=== PATIENT | female | born 1950 | race Caucasian/White ===

== ENCOUNTER 2019-02-24 12:27 | Emergency (ER) | payer MEDICARE, OTHER ==
[~2019-02-24] VITALS: Ht 177.8 cm; Wt 87.2 kg
--- NOTE | 2019-02-24 15:27 | REP ---
Clinical: Cough. Fever . Comparison: None . Technique: PA and lateral. Findings: The mediastinum and cardiac silhouette are normal. The lung kline are clear and without acute consolidation, effusion, or pneumothorax. Chronic linear scarring in the left lung base. The skeletal structures are intact and normal. Impression: 1. No acute cardiopulmonary process. Electronically Signed by Johan Mukherjee MD 02/24/2019 03:19 P
[2019-02-24 15:49] LABS: INFLUENZA A AMPLIFICATION POSITIVE (NEGATIVE); INFLUENZA B AMPLIFICATION NEGATIVE (NEGATIVE)
[2019-02-24] MEDS ORDERED: OSEL75CA PO (16:28)
[2019-02-24] MEDS ORDERED: BENZ200C70 PO (16:29)
[2019-02-24] MEDS ORDERED: MUCI600T31 PO (16:29)
[2019-02-24] MEDS ORDERED: OSELTAMIVIR PHOSPHATE 75 MG CAP (TAMIFLU) PO ONE (16:30)
[2019-02-24 16:32] VITALS: BP 137/87
== END 2019-02-24 16:44 | disposition home or self-care (01) ==
LOC: M ED 12:27
DX: J09.X9 Influenza due to identified novel influenza A virus with other manifestations (principal); Z79.899 Other long term (current) drug therapy; Z88.1 Allergy status to other antibiotic agents; Z88.2 Allergy status to sulfonamides

== ENCOUNTER 2021-05-15 14:05 | Emergency (ER) | payer MEDICARE, OTHER ==
[~2021-05-15] VITALS: Ht 177.8 cm; Wt 91.4 kg
[~2021-05-15 14:05] MED LIST: BENZ200C70 PO; MUCI600T31 PO; OSEL75CA PO
[2021-05-15] MEDS ORDERED: diazePAM 5MG TABLET PO ONE (14:35)
[2021-05-15] MEDS ORDERED: fentaNYL 100 MCG/2 ML INJECTION (J3010) IV ONE (14:35)
[2021-05-15 15:11] LABS: BASO # 0.1 10^3/uL (0.0-0.2); BASO % 0.9 % (0.0-1.0); EOS # 0.1 10^3/uL (0.0-0.5); HEMATOCRIT 44.4 % (36.0-47.0); HEMOGLOBIN 14.7 g/dl (12.0-15.5); LYMPH # 1.1 10^3/uL (1.5-5.0); LYMPH % 10.1 % (24.0-44.0); MEAN CORPUSCULAR HEMOGLOBIN 31.8 pg (27.0-33.0); MEAN CORPUSCULAR HGB CONC 33.1 g/dl (32.0-36.5); MEAN CORPUSCULAR VOLUME 96.1 fl (80.0-96.0); MONO # 0.6 10^3/uL (0.0-0.8); MONO % 5.6 % (2.0-8.0); NEUTROPHILS % 81.9 % (36.0-66.0); PLATELET COUNT, AUTOMATED 302 10^3/uL (150-450); RED BLOOD COUNT 4.62 10^6/uL (4.00-5.40)
[2021-05-15 15:30] LABS: ALBUMIN 3.8 GM/DL (3.2-5.2); ALT/SGPT 25 U/L (12-78); BILIRUBIN,TOTAL 0.5 MG/DL (0.2-1.0); BLOOD UREA NITROGEN 17 MG/DL (7-18); CALCIUM LEVEL 8.4 MG/DL (8.8-10.2); CARBON DIOXIDE LEVEL 23 MEQ/L (21-32); CHLORIDE LEVEL 109 MEQ/L (98-107); CREATININE FOR GFR 0.79 MG/DL (0.55-1.30); GLOMERULAR FILTRATION RATE > 60.0 (>39); GLUCOSE, FASTING 99 MG/DL (70-100); POTASSIUM SERUM 4.3 MEQ/L (3.5-5.1); SODIUM LEVEL 140 MEQ/L (136-145); TOTAL PROTEIN 7.4 GM/DL (6.4-8.2)
[2021-05-15] MEDS ORDERED: ISOVUE-370 76% 100ML VIAL As Ordered ONE (15:33)
[2021-05-15] MEDS ORDERED: GABA-282 (16:10)
[2021-05-15] MEDS ORDERED: BIMA01SOL (16:10)
[2021-05-15] MEDS ORDERED: RHOP0.02 (16:10)
[2021-05-15] MEDS ORDERED: ZOCO10TA (16:10)
[2021-05-15] MEDS ORDERED: AMLO2.5T3 (16:10)
[2021-05-15] MEDS ORDERED: XIID5DRO (16:10)
[2021-05-15] MEDS ORDERED: MYRB50TA (16:10)
[2021-05-15] MEDS ORDERED: SOLI5TAB (16:10)
[2021-05-15] MEDS ORDERED: ESTR62CR (16:10)
--- NOTE | 2021-05-15 16:10 | REP ---
INDICATION: PAIN S/P FALL. COMPARISON: None. TECHNIQUE: Ap VIEW FINDINGS: No fracture/dislocation. Osteoporosis. Hip joints and sacroiliac joints normal.Soft tissues normal. IMPRESSION: No bony injury. <Electronically signed by Salbador Alves > 05/15/21 [id number]
--- NOTE | 2021-05-15 16:13 | REP ---
INDICATION: PAIN S/P FALL. COMPARISON: None. TECHNIQUE: AP view FINDINGS: Small area of atelectasis in LLL. Lungs otherwise clear. No pneumothorax. Heart not enlarged. No failure or pleural fluid. IMPRESSION: Small patch of atelectasis LEFT LOWER LOBE. <Electronically signed by Salbador Alves > 05/15/21 [id number]
[2021-05-15] MEDS ORDERED: PEPC10TA6 PO (16:14)
[2021-05-15] MEDS ORDERED: XIID5DRO OP (16:14)
[2021-05-15] MEDS ORDERED: FISH1000 PO (16:14)
[2021-05-15] MEDS ORDERED: OLOP2.5D3 OP (16:14)
[2021-05-15] MEDS ORDERED: eye vitamin (16:14)
[2021-05-15] MEDS ORDERED: PRIL20TA2 PO (16:14)
[2021-05-15] MEDS ORDERED: PROBCAP14 PO (16:14)
[2021-05-15] MEDS ORDERED: FLON1SPR NARES (16:14)
[2021-05-15] MEDS ORDERED: ALBU83IN NEB (16:14)
[2021-05-15] MEDS ORDERED: DULE100A INH (16:14)
[2021-05-15] MEDS ORDERED: LOTE0.5O OP (16:14)
--- NOTE | 2021-05-15 16:31 | REP ---
INDICATION: THORACIC PAIN WHEN IN [place]. COMPARISON: None. TECHNIQUE: Scans were obtained during contrast administration paired FINDINGS: Chest CT: Small area of atelectasis in the left lower lung and minimal area of atelectasis in the right lower lung. The lungs are otherwise clear. There is no pleural effusion or pneumothorax. Pulmonary arteries and aorta unremarkable paired Heart not enlarged. Thyroid not enlarged. Adrenal glands unremarkable. Abdominal and pelvic CT: One cm cyst right lobe of the liver. The liver is otherwise unremarkable. There is no mass or biliary tract dilatation. Small stone in the gallbladder. The gallbladder is not distended. The pancreas, spleen, aorta, adrenal glands and kidneys are unremarkable. There is a 3 x 2 cm cyst under the left hemidiaphragm in the left upper quadrant which is of uncertain etiology. The large and small bowel show normal size and mucosal pattern. Diverticuli are noted in the sigmoid colon. There is no evidence of diverticulitis. The urinary bladder is distended. The uterus and ovaries not present. No adenopathy demonstrated in the abdomen or pelvis. There is no evidence of inflammatory change in the abdomen or pelvis. IMPRESSION: Small areas of atelectasis in the lower lungs. Three right 2 cm cyst under the left hemidiaphragm. Diverticulosis without evidence of diverticulitis. Gallstone. <Electronically signed by Salbador Alves > 05/15/21 [id number]
[2021-05-15 16:41] LABS: APPEARANCE, URINE CLEAR (CLEAR); BACTERIA, URINE AUTO 1+ (NEGATIVE); BILIRUBIN, URINE AUTO NEGATIVE (NEGATIVE); BLOOD, URINE BLOOD NEGATIVE (NEGATIVE); COLOR, URINE STRAW (YELLOW); GLUCOSE, URINE (UA) AUTO NEGATIVE (NEGATIVE); KETONE, URINE AUTO NEGATIVE (NEGATIVE); LEUKOCYTE ESTERASE, URINE AUTO NEGATIVE (NEGATIVE); NITRITE, URINE AUTO NEGATIVE (NEGATIVE); PROTEIN, URINE AUTO NEGATIVE (NEGATIVE); RBC, URINE AUTO 0 /HPF (0-3); SPECIFIC GRAVITY URINE AUTO 1.012 (1.002-1.035); SQUAMOUS EPITHELIAL CELL UR AU 1 /HPF (0-6); UROBILINOGEN, URINE AUTO 0.2 mg/dL (0.0-2.0); WBC, URINE AUTO 1 /HPF (0-3)
--- NOTE | 2021-05-15 17:16 | REP ---
INDICATION: PAIN S/P FALL OFF DOCK. PREDOMINATELY T-SPINE. COMPARISON: None. TECHNIQUE: Unenhanced scans FINDINGS: Normal alignment. No fracture. Disc spaces well maintained. No foraminal encroachment. Neural canal shows normal dimensions. IMPRESSION: Negative CT cervical spine <Electronically signed by Salbador Alves > 05/15/21 [id number]
--- NOTE | 2021-05-15 17:18 | REP ---
INDICATION: PAIN S/P FALL OFF DOCK. PREDOMINATELY T-SPINE. COMPARISON: None. TECHNIQUE: Unenhanced scans FINDINGS: Multiple osteoporotic compression fractures which are old involving the mid thoracic vertebra. Anterior bridging osteophytes. Spondylosis with disc space narrowing. Minimal scoliosis convexity to the right. No evidence of recent fracture. Osteoporosis. IMPRESSION: Osteoporosis. Multiple midthoracic compression fractures with anterior bridging osteophytes and disc space narrowing. No recent fracture. <Electronically signed by Salbador Alves > 05/15/21 [id number]
--- NOTE | 2021-05-15 17:20 | REP ---
INDICATION: PAIN S/P FALL OFF DOCK. PREDOMINATELY T-SPINE. COMPARISON: None. TECHNIQUE: Scans were obtained without contrast administration. FINDINGS: Normal alignment. Osteoporosis. No fractures. Mild scoliosis convexity to the left. Disc spaces well maintained. Facet arthropathy L4-5 and L5-S1 levels. IMPRESSION: No fracture. <Electronically signed by Salbador Alves > 05/15/21 [id number]
--- NOTE | 2021-05-15 18:11 | REP ---
INDICATION: THORACIC PAIN WHEN IN [place]. COMPARISON: None. TECHNIQUE: Scans were obtained during contrast administration. FINDINGS: 1 cm cyst right lobe of the liver. No liver mass or biliary tract dilatation. Liver shows normal size. 5 mm gallstone. Gallbladder not distended. Pancreas and spleen unremarkable. 3 x 2 cm cyst under the left hemidiaphragm of uncertain etiology. Aorta not dilated. Adrenal glands not enlarged. Kidneys unremarkable. No mesenteric or retroperitoneal adenopathy. Large and small bowel show no mucosal thickening or inflammatory change. Appendix identified showing no abnormality. Diverticuli in the sigmoid colon no evidence of diverticulitis. No mass, adenopathy or inflammatory change in the abdomen or pelvis. Distended urinary bladder. IMPRESSION: 1 cm cyst right lobe of the liver. Gallstone. 3 x 2 cm cyst under the left hemidiaphragm. Diverticulosis. No evidence of diverticulitis. Distended urinary bladder. <Electronically signed by Salbador Alves > 05/15/21 [id number]
[2021-05-15] MEDS ORDERED: HYDR-3713 PO (18:30)
[2021-05-15] MEDS ORDERED: VALI5TAB PO (18:30)
[2021-05-15] MEDS ORDERED: NAPR-837 PO (18:30)
[2021-05-15 18:58] VITALS: BP 140/83
== END 2021-05-15 19:02 | disposition home or self-care (01) ==
LOC: EDBD 14:05 → M ED 14:05
DX: S23.3XXA Sprain of ligaments of thoracic spine, initial encounter (principal); Z04.89 Encounter for examination and observation for other specified reasons; Z87.311 Personal history of (healed) other pathological fracture; W19.XXXA Unspecified fall, initial encounter; Y92.099 Unspecified place in other non-institutional residence as the place of occurrence of the external cause; Y93.9 Activity, unspecified; Y99.9 Unspecified external cause status; E78.00 Pure hypercholesterolemia, unspecified; J45.909 Unspecified asthma, uncomplicated; H40.9 Unspecified glaucoma; M19.90 Unspecified osteoarthritis, unspecified site; M81.0 Age-related osteoporosis without current pathological fracture; K80.20 Calculus of gallbladder without cholecystitis without obstruction; K57.30 Diverticulosis of large intestine without perforation or abscess without bleeding; J98.6 Disorders of diaphragm; J98.11 Atelectasis; Q44.6 Cystic disease of liver; Z79.890 Hormone replacement therapy; Z79.899 Other long term (current) drug therapy; Z88.2 Allergy status to sulfonamides; Z88.1 Allergy status to other antibiotic agents; Z88.8 Allergy status to other drugs, medicaments and biological substances; Z88.5 Allergy status to narcotic agent
CPT/HCPCS: 71045; 71260; 72125; 72128; 72131; 72170; 74177; 80053; 81001; 85025; 96374; 99284; J3010; Q9967

== ENCOUNTER 2025-05-10 23:29 | Inpatient (IN) | payer MEDICARE, OTHER ==
[~2025-05-10] VITALS: Ht 177.8 cm; Wt 91.3 kg
[~2025-05-10 23:29] MED LIST changes: +ALBU2.5V10 NEB; +AMLO2.5T3; +BIMA01SOL OU; +ESTR62CR; +FISH1000 PO; +FLON1SPR NARES; +GABA-1172 PO; +HYDR-3713 PO; +LIFI1DRO4 OP; +LIFI1DRO4 OU; +LOTE0.5O OP; +MOME13HF8 INH; +MYRB50TA; +NAPR-837 PO; +OLOP2.5D3 OU; +PEPC10TA6 PO; +PRIL20TA2 PO; +PROBCAP14 PO; +RHOP0.02 OU; +SIMV-252 PO; +SOLI5TAB; +VALI5TAB PO; +eye vitamin
[2025-05-11] MEDS ORDERED: HYDROMORPHONE HCL 0.5 MG/0.5 ML SYRINGE IV PRN (01:05)
[2025-05-11] MEDS ORDERED: LEVALBUTEROL 1.25 MG 0.5ML CONCENTRATE NEB NEB PRN (01:20)
[2025-05-11] MEDS: ONDANSETRON 4MG 2ML VIAL IV ONE (01:22)
[2025-05-11] MEDS: HYDROMORPHONE HCL 0.5 MG/0.5 ML SYRINGE IV PRN (01:23)
[2025-05-11] MEDS: traMADol 50 MG TAB PO ONE (01:24)
[2025-05-11 01:37] LABS: BASO # 0.1 10^3/uL (0.0-0.2); BASO % 0.5 % (0.0-1.0); EOS # 0.0 10^3/uL (0.0-0.5); EOS % 0.1 % (0.0-3.0); LYMPH # 0.9 10^3/uL (1.5-5.0); LYMPH % 6.3 % (24.0-44.0); MONO # 0.6 10^3/uL (0.0-0.8); MONO % 4.2 % (2.0-8.0); NEUTROPHILS # 13.1 10^3/uL (1.5-8.5); NEUTROPHILS % 88.5 % (36.0-66.0); PLATELET COUNT, AUTOMATED 266 10^3/uL (150-450)
[2025-05-11 01:51] LABS: INR 1.02
[2025-05-11] MEDS: LEVALBUTEROL 1.25 MG 0.5ML CONCENTRATE NEB NEB SCH (02:24)
[2025-05-11 02:25] VITALS: BP 131/87; TEMP 97.7; O2SAT 97
[2025-05-11 02:25] LABS: CALCIUM LEVEL 9.6 MG/DL (8.3-10.6); CARBON DIOXIDE LEVEL 23.0 MMOL/L (20-31); CHLORIDE LEVEL 105.0 MMOL/L (98-107); CREATININE FOR GFR 1.0 MG/DL (0.55-1.30); GLOMERULAR FILTRATION RATE 58.8 (>39); MAGNESIUM LEVEL 2.2 MG/DL (1.8-2.4); POTASSIUM SERUM 4.2 MMOL/L (3.5-5.1); SODIUM LEVEL 142.0 MMOL/L (136-145)
[2025-05-11] MEDS: KCL 20MEQ IN D5/NS 1000ML 1,000 ML IV SCH (02:59)
[2025-05-11 03:00] VITALS: BP 131/87; TEMP 97.7; O2SAT 97
[2025-05-11] MEDS ORDERED: FAMO20TA PO (04:36)
[2025-05-11] MEDS ORDERED: AMLO1TAB24 PO (04:36)
[2025-05-11] MEDS ORDERED: VITA200028 PO ×2 (04:42)
[2025-05-11] MEDS ORDERED: HOME MED LIST COMPLETE! XX SCH (04:45)
[2025-05-11 06:06] LABS: PLATELET COUNT, AUTOMATED 229 10^3/uL (150-450)
[2025-05-11 06:19] LABS: INR 1.04
[2025-05-11] MEDS: SYMBICORT 160/4.5MCG INHALER 6GM INH SCH (08:00)
[2025-05-11 08:04] LABS: CALCIUM LEVEL 8.7 MG/DL (8.3-10.6); CARBON DIOXIDE LEVEL 25.0 MMOL/L (20-31); CHLORIDE LEVEL 107.0 MMOL/L (98-107); CREATININE FOR GFR 0.83 MG/DL (0.55-1.30); GLOMERULAR FILTRATION RATE 73.5 (>39); POTASSIUM SERUM 4.3 MMOL/L (3.5-5.1); SODIUM LEVEL 144.0 MMOL/L (136-145)
[2025-05-11] MEDS: HEPARIN SOD 5000 UNITS/ML 1 ML VIAL/SYRINGE SC SCH (09:03)
[2025-05-11] MEDS: FAMOTIDINE 20 MG TAB PO SCH (09:04)
[2025-05-11] MEDS: ACETAMINOPHEN 500 MG TAB PO SCH (09:04)
[2025-05-11] MEDS: KETOROLAC 30 MG/ML 1 ML VIAL IV SCH (09:04)
[2025-05-11] MEDS: GABAPENTIN 300 MG CAP PO SCH (09:05)
[2025-05-11 12:00] VITALS: BP 116/59; TEMP 97.3; O2SAT 96
[2025-05-11] MEDS: LIDOCAINE 5% PATCH TD SCH (13:49)
[2025-05-11 19:55] VITALS: BP 144/67; TEMP 97.3; O2SAT 97
[2025-05-11] MEDS: SIMVASTATIN 10 MG TAB PO SCH (20:35)
[2025-05-11] MEDS: FLUTICASONE PROPIONATE 0.05% NASAL SPRAY 16 GM NARES SCH (20:35)
[2025-05-11] MEDS: OMEPRAZOLE 20MG CAP PO SCH (20:38)
[2025-05-11] MEDS: LATANOPROST 0.005% OPHTH SOLN 2.5 ML OU SCH (20:38)
[2025-05-12] VITALS (18 sets, daily range): BP systolic 135–176; BP diastolic 65–93; TEMP 97–98.2; O2SAT 92–100
[2025-05-12 06:06] LABS: BASO # 0.1 10^3/uL (0.0-0.2); BASO % 0.8 % (0.0-1.0); EOS # 0.2 10^3/uL (0.0-0.5); EOS % 3.5 % (0.0-3.0); LYMPH # 1.4 10^3/uL (1.5-5.0); LYMPH % 22.1 % (24.0-44.0); MONO # 0.8 10^3/uL (0.0-0.8); MONO % 12.2 % (2.0-8.0); NEUTROPHILS # 3.9 10^3/uL (1.5-8.5); NEUTROPHILS % 61.1 % (36.0-66.0); PLATELET COUNT, AUTOMATED 199 10^3/uL (150-450)
[2025-05-12] MEDS: OLOPATADINE 0.1% OPHTH SOL 5ML OU SCH (09:00)
[2025-05-12] MEDS: amLODIPine 5 MG TAB PO SCH (09:28)
[2025-05-12] MEDS ORDERED: ACET-683 PO (12:06)
[2025-05-12] MEDS ORDERED: IBUP-1022 PO (12:06)
[2025-05-12] MEDS ORDERED: LIDO5TD TD (12:06)
[2025-05-12] MEDS ORDERED: TRAM50TA2 PO (12:06)
[2025-05-12] MEDS ORDERED: BISACODYL 10 MG SUPP PR PRN (13:50)
[2025-05-12] MEDS ORDERED: PILL CUTTER 1 EACH XX PRN (14:40)
[2025-05-12] MEDS ORDERED: traMADol 50 MG TAB PO SCH (16:00)
[2025-05-12] MEDS ORDERED: IBUPROFEN 400 MG TAB PO SCH (16:00)
[2025-05-12] MEDS ORDERED: SENNOSIDES/DOCUSATE SODIUM 8.6 MG/50MG TAB PO SCH (21:00)
[2025-05-13] MEDS ORDERED: OMEP40CA5 PO (14:43)
== END 2025-05-12 16:10 | disposition home or self-care (01) | DRG 200 ==
LOC: M ED 23:29 → M ED INP 05-11 01:16 → M PCU 05-11 02:18
PROVIDERS: ADMIT Internal Medicine; ATTEND Internal Medicine
DX: S27.0XXA Traumatic pneumothorax, initial encounter (principal); S22.41XA Multiple fractures of ribs, right side, initial encounter for closed fracture; W01.190A Fall on same level from slipping, tripping and stumbling with subsequent striking against furniture, initial encounter; Y92.009 Unspecified place in unspecified non-institutional (private) residence as the place of occurrence of the external cause; E78.5 Hyperlipidemia, unspecified; J45.909 Unspecified asthma, uncomplicated; K21.9 Gastro-esophageal reflux disease without esophagitis; K59.00 Constipation, unspecified; H40.9 Unspecified glaucoma; Z90.79 Acquired absence of other genital organ(s); Z79.899 Other long term (current) drug therapy; Z88.0 Allergy status to penicillin; Z88.1 Allergy status to other antibiotic agents; Z88.2 Allergy status to sulfonamides; Z88.5 Allergy status to narcotic agent; Z88.6 Allergy status to analgesic agent

== ENCOUNTER 2025-05-13 04:22 | Inpatient (IN) | payer MEDICARE ==
[~2025-05-13] VITALS: Ht 177.8 cm; Wt 91.7 kg
[~2025-05-13 04:22] MED LIST changes: +ACET-683 PO; +AMLO1TAB24 PO; +FAMO20TA PO; +IBUP600T42 PO; +LIDO5TD TD; +TRAM50TA2 PO; +VITA200028 PO
[2025-05-13] MEDS: amLODIPine 5 MG TAB PO SCH (09:00)
[2025-05-13 09:11] LABS: BASO # 0.0 10^3/uL (0.0-0.2); BASO % 0.5 % (0.0-1.0); EOS # 0.0 10^3/uL (0.0-0.5); EOS % 0.1 % (0.0-3.0); LYMPH # 1.0 10^3/uL (1.5-5.0); LYMPH % 11.5 % (24.0-44.0); MONO # 0.6 10^3/uL (0.0-0.8); MONO % 6.2 % (2.0-8.0); NEUTROPHILS # 7.1 10^3/uL (1.5-8.5); NEUTROPHILS % 81.0 % (36.0-66.0); PLATELET COUNT, AUTOMATED 265 10^3/uL (150-450)
[2025-05-13 09:27] LABS: CK-MB VALUE MASS 2.5 NG/ML (<3.6)
[2025-05-13 09:41] LABS: ALT/SGPT 16 U/L (7.0-40); AST/SGOT 20 U/L (<34); CALCIUM LEVEL 9.9 MG/DL (8.3-10.6); CARBON DIOXIDE LEVEL 25 MMOL/L (20-31); CHLORIDE LEVEL 104 MMOL/L (98-107); CPK CREATINE PHOSPHOKINASE 170 U/L (34-145); CREATININE FOR GFR 0.62 MG/DL (0.55-1.30); GLOMERULAR FILTRATION RATE > 90.0 (>39); MB/CK RELATIVE INDEX 1.47 (< OR =4); POTASSIUM SERUM 4.0 MMOL/L (3.5-5.1); SODIUM LEVEL 142 MMOL/L (136-145)
[2025-05-13] MEDS: NS 500 ML IV ONE (09:50)
[2025-05-13] MEDS: ONDANSETRON 4MG 2ML VIAL IV ONE ×2 (09:50→14:18)
[2025-05-13] MEDS: HYDROMORPHONE HCL 0.5 MG/0.5 ML SYRINGE IV PRN (10:27)
[2025-05-13] MEDS ORDERED: ISOVUE-370 76% 100 ML VIAL As Ordered ONE (10:54)
[2025-05-13] MEDS ORDERED: OMEP40CA5 PO (14:43)
[2025-05-13] MEDS ORDERED: HOME MED LIST COMPLETE! XX SCH (14:45)
[2025-05-13] MEDS: ACETAMINOPHEN 500 MG TAB PO SCH (16:00)
[2025-05-13] MEDS: IBUPROFEN 600 MG TAB PO SCH (16:00)
[2025-05-13] MEDS: PANTOPRAZOLE 40MG VIAL IV ONE (17:14)
[2025-05-13 17:29] VITALS: BP 159/85; TEMP 97.2; O2SAT 97
[2025-05-13] MEDS: ACETAMINOPHEN *IV* 1,000 MG in IV 1 EA IV ONE (18:19)
[2025-05-13] MEDS: LEVALBUTEROL 1.25 MG 0.5ML CONCENTRATE NEB INH SCH (19:09)
[2025-05-13] MEDS: SYMBICORT 160/4.5MCG INHALER 6GM INH SCH (19:09)
[2025-05-13 20:09] VITALS: BP 147/72; TEMP 99.4; O2SAT 94
[2025-05-13] MEDS: SENNOSIDES/DOCUSATE SODIUM 8.6 MG/50MG TAB PO SCH (21:00)
[2025-05-13] MEDS: FLUTICASONE PROPIONATE 0.05% NASAL SPRAY 16 GM NARES SCH (21:00)
[2025-05-13] MEDS: LIDOCAINE 5% PATCH TD SCH (22:39)
[2025-05-13] MEDS: GABAPENTIN 300 MG CAP PO SCH (22:44)
[2025-05-13] MEDS: FAMOTIDINE 20 MG TAB PO SCH (22:44)
[2025-05-13] MEDS: SIMVASTATIN 10 MG TAB PO SCH (22:44)
[2025-05-13] MEDS: LATANOPROST 0.005% OPHTH SOLN 2.5 ML OU SCH (22:47)
[2025-05-13] MEDS: ONDANSETRON 4MG ORAL DISINTEGRATING TAB PO PRN (23:52)
[2025-05-14] VITALS (7 sets, daily range): BP systolic 122–164; BP diastolic 59–79; TEMP 98.3–99.5; O2SAT 96–100
[2025-05-14] MEDS: KETOROLAC 30 MG/ML 1 ML VIAL IV PRN (04:47)
[2025-05-14 07:15] LABS: PLATELET COUNT, AUTOMATED 251 10^3/uL (150-450)
[2025-05-14 07:41] LABS: ALT/SGPT 18 U/L (7.0-40); AST/SGOT 22 U/L (<34); CALCIUM LEVEL 9.0 MG/DL (8.3-10.6); CARBON DIOXIDE LEVEL 25 MMOL/L (20-31); CHLORIDE LEVEL 102 MMOL/L (98-107); CREATININE FOR GFR 0.57 MG/DL (0.55-1.30); GLOMERULAR FILTRATION RATE > 90.0 (>39); POTASSIUM SERUM 3.3 MMOL/L (3.5-5.1); SODIUM LEVEL 142 MMOL/L (136-145)
[2025-05-14] MEDS ORDERED: MIRALAX *UNIT DOSE* 17 GM PACKET PO PRN (08:50)
[2025-05-14] MEDS ORDERED: PANTOPRAZOLE 20 MG TAB PO SCH (09:00)
[2025-05-14] MEDS: MORPHINE 4 MG/ML 1 ML VIAL IV PRN (09:59)
[2025-05-14] MEDS: ONDANSETRON 4MG 2ML VIAL IV PRN (10:00)
[2025-05-14] MEDS ORDERED: ONDANSETRON 4MG 2ML VIAL IV SCH (10:00)
[2025-05-14] MEDS: SENNOSIDES/DOCUSATE SODIUM 8.6 MG/50MG TAB PO SCH (10:51)
[2025-05-14] MEDS: PANTOPRAZOLE 40MG VIAL IV SCH (10:52)
[2025-05-14] MEDS: BISACODYL 10 MG SUPP PR ONE (10:52)
[2025-05-14] MEDS: KCL 10MEQ/100ML SWI (KRUN) 10 MEQ in IV 1 EA IV SCH (10:57)
[2025-05-14] MEDS ORDERED: BISACODYL 10 MG SUPP PR PRN ×2 (13:15→13:25)
[2025-05-14] MEDS ORDERED: NALOXONE INJ 0.4 MG/1 ML VIAL IV PRN (13:20)
[2025-05-14] MEDS ORDERED: ONDANSETRON 4MG 2ML VIAL IV PRN (13:20)
[2025-05-14] MEDS ORDERED: EPIDURAL/PCA KEYS XX PRN (13:20)
[2025-05-14] MEDS ORDERED: NALBUPHINE HCL 10 MG/ML 1 ML AMP IV PRN (13:20)
[2025-05-14] MEDS: ACETAMINOPHEN *IV* 1,000 MG in IV 1 EA IV SCH (14:14)
[2025-05-14] MEDS: MIDAZOLAM INJ 2 MG/2 ML VIAL IV ONE (15:03)
[2025-05-14] MEDS: CALCIUM GLUCONATE 1,000 MG in DEXTROSE 5% (D5W) MINI-BAG PLU 100 ML IV ONE (16:25)
[2025-05-14] MEDS: KETOROLAC 30 MG/ML 1 ML VIAL IV SCH (17:00)
[2025-05-14] MEDS: OLOPATADINE 0.1% OPHTH SOL 5ML OU SCH (17:47)
[2025-05-14] MEDS: fentaNYL CITRATE 500 MCG, BUPIVACAINE HCL 0.5% 31.25 ML in NS 208.75 ML EPIDURAL SCH (19:12)
[2025-05-14] MEDS: diphenhydrAMINE 50 MG/ML VIAL IV PRN (20:10)
[2025-05-14] MEDS: DOCUSATE SODIUM 100 MG CAPSULE PO SCH (20:22)
[2025-05-15] VITALS (9 sets, daily range): BP systolic 88–132; BP diastolic 50–70; TEMP 97.4–98.3; O2SAT 93–97
[2025-05-15 05:48] LABS: BASO # 0.1 10^3/uL (0.0-0.2); BASO % 0.6 % (0.0-1.0); EOS # 0.0 10^3/uL (0.0-0.5); EOS % 0.5 % (0.0-3.0); LYMPH # 1.9 10^3/uL (1.5-5.0); LYMPH % 24.0 % (24.0-44.0); MONO # 0.9 10^3/uL (0.0-0.8); MONO % 11.5 % (2.0-8.0); NEUTROPHILS # 4.9 10^3/uL (1.5-8.5); NEUTROPHILS % 63.1 % (36.0-66.0); PLATELET COUNT, AUTOMATED 234 10^3/uL (150-450)
[2025-05-15 06:08] LABS: CALCIUM LEVEL 8.0 MG/DL (8.3-10.6); CARBON DIOXIDE LEVEL 28.0 MMOL/L (20-31); CHLORIDE LEVEL 104.0 MMOL/L (98-107); CREATININE FOR GFR 0.8 MG/DL (0.55-1.30); GLOMERULAR FILTRATION RATE 76.8 (>39); POTASSIUM SERUM 3.6 MMOL/L (3.5-5.1); SODIUM LEVEL 141.0 MMOL/L (136-145)
[2025-05-15] MEDS: MOM 30 ML SUSPENSION UDC PO SCH (08:39)
[2025-05-15] MEDS: MIRALAX *UNIT DOSE* 17 GM PACKET PO SCH (08:39)
[2025-05-15] MEDS: NS 500 ML IV ONE (16:25)
[2025-05-16 03:31] VITALS: BP 111/57; TEMP 97.4; O2SAT 93
[2025-05-16 04:44] LABS: BASO # 0.0 10^3/uL (0.0-0.2); BASO % 0.5 % (0.0-1.0); EOS # 0.2 10^3/uL (0.0-0.5); EOS % 2.7 % (0.0-3.0); LYMPH # 1.5 10^3/uL (1.5-5.0); LYMPH % 20.6 % (24.0-44.0); MONO # 0.8 10^3/uL (0.0-0.8); MONO % 10.3 % (2.0-8.0); NEUTROPHILS # 4.8 10^3/uL (1.5-8.5); NEUTROPHILS % 65.5 % (36.0-66.0); PLATELET COUNT, AUTOMATED 190 10^3/uL (150-450)
[2025-05-16 05:09] LABS: CALCIUM LEVEL 7.9 MG/DL (8.3-10.6); CARBON DIOXIDE LEVEL 28.0 MMOL/L (20-31); CHLORIDE LEVEL 104.0 MMOL/L (98-107); CREATININE FOR GFR 0.88 MG/DL (0.55-1.30); GLOMERULAR FILTRATION RATE 68.5 (>39); POTASSIUM SERUM 3.6 MMOL/L (3.5-5.1); SODIUM LEVEL 142.0 MMOL/L (136-145)
[2025-05-16 07:48] VITALS: BP 113/62; TEMP 97.4; O2SAT 95
[2025-05-16] MEDS ORDERED: SENNOSIDES/DOCUSATE SODIUM 8.6 MG/50MG TAB PO PRN (09:00)
[2025-05-16 12:00] VITALS: BP 108/58; TEMP 98.1; O2SAT 97
[2025-05-16] MEDS: ACETAMINOPHEN 500 MG TAB PO SCH (14:00)
[2025-05-16 16:00] VITALS: BP 118/64; TEMP 98.6; O2SAT 94
[2025-05-16 19:29] VITALS: BP 139/67; TEMP 98.3; O2SAT 95
[2025-05-17] VITALS (7 sets, daily range): BP systolic 124–143; BP diastolic 63–78; TEMP 97.3–97.9; O2SAT 94–97
[2025-05-17 06:00] LABS: BASO # 0.1 10^3/uL (0.0-0.2); BASO % 0.8 % (0.0-1.0); EOS # 0.4 10^3/uL (0.0-0.5); EOS % 7.2 % (0.0-3.0); LYMPH # 1.7 10^3/uL (1.5-5.0); LYMPH % 27.5 % (24.0-44.0); MONO # 0.7 10^3/uL (0.0-0.8); MONO % 10.8 % (2.0-8.0); NEUTROPHILS # 3.3 10^3/uL (1.5-8.5); NEUTROPHILS % 53.4 % (36.0-66.0); PLATELET COUNT, AUTOMATED 202 10^3/uL (150-450)
[2025-05-17 06:22] LABS: CALCIUM LEVEL 7.8 MG/DL (8.3-10.6); CARBON DIOXIDE LEVEL 27 MMOL/L (20-31); CHLORIDE LEVEL 107 MMOL/L (98-107); CREATININE FOR GFR 0.68 MG/DL (0.55-1.30); GLOMERULAR FILTRATION RATE > 90.0 (>39); POTASSIUM SERUM 3.7 MMOL/L (3.5-5.1); SODIUM LEVEL 144 MMOL/L (136-145)
[2025-05-17] MEDS: POTASSIUM CHLORIDE 10MEQ SR TABLET PO ONE (09:52)
[2025-05-17] MEDS: FUROSEMIDE 40 MG/4 ML VIAL IV ONE (09:52)
[2025-05-18 03:16] VITALS: BP 129/68; TEMP 97; O2SAT 96
[2025-05-18 05:29] LABS: BASO # 0.1 10^3/uL (0.0-0.2); BASO % 1.0 % (0.0-1.0); EOS # 0.5 10^3/uL (0.0-0.5); EOS % 8.5 % (0.0-3.0); LYMPH # 1.7 10^3/uL (1.5-5.0); LYMPH % 28.3 % (24.0-44.0); MONO # 0.6 10^3/uL (0.0-0.8); MONO % 9.2 % (2.0-8.0); NEUTROPHILS # 3.2 10^3/uL (1.5-8.5); NEUTROPHILS % 52.7 % (36.0-66.0); PLATELET COUNT, AUTOMATED 215 10^3/uL (150-450)
[2025-05-18 05:58] LABS: CALCIUM LEVEL 7.7 MG/DL (8.3-10.6); CARBON DIOXIDE LEVEL 30.0 MMOL/L (20-31); CHLORIDE LEVEL 105.0 MMOL/L (98-107); CREATININE FOR GFR 0.72 MG/DL (0.55-1.30); GLOMERULAR FILTRATION RATE 87.1 (>39); POTASSIUM SERUM 4.0 MMOL/L (3.5-5.1); SODIUM LEVEL 145.0 MMOL/L (136-145)
[2025-05-18 08:10] VITALS: BP 159/75; TEMP 98.2; O2SAT 99
[2025-05-18 11:52] VITALS: BP 122/83; TEMP 97.6; O2SAT 97
[2025-05-18] MEDS: FUROSEMIDE 40 MG/4 ML VIAL IV ONE (12:33)
[2025-05-18 15:53] VITALS: BP 124/56; TEMP 98.1; O2SAT 96
[2025-05-18 19:05] VITALS: BP 126/77; TEMP 97.9; O2SAT 97
[2025-05-18 23:05] VITALS: BP 118/58; TEMP 97.5; O2SAT 96
[2025-05-19 03:26] VITALS: BP 131/62; TEMP 97.7; O2SAT 97
[2025-05-19 05:45] LABS: BASO # 0.1 10^3/uL (0.0-0.2); BASO % 1.3 % (0.0-1.0); EOS # 0.5 10^3/uL (0.0-0.5); EOS % 8.5 % (0.0-3.0); LYMPH # 1.7 10^3/uL (1.5-5.0); LYMPH % 27.3 % (24.0-44.0); MONO # 0.6 10^3/uL (0.0-0.8); MONO % 9.3 % (2.0-8.0); NEUTROPHILS # 3.3 10^3/uL (1.5-8.5); NEUTROPHILS % 53.3 % (36.0-66.0); PLATELET COUNT, AUTOMATED 224 10^3/uL (150-450)
[2025-05-19 06:12] LABS: CALCIUM LEVEL 7.6 MG/DL (8.3-10.6); CARBON DIOXIDE LEVEL 29.0 MMOL/L (20-31); CHLORIDE LEVEL 105.0 MMOL/L (98-107); CREATININE FOR GFR 0.75 MG/DL (0.55-1.30); GLOMERULAR FILTRATION RATE 83.0 (>39); POTASSIUM SERUM 3.8 MMOL/L (3.5-5.1); SODIUM LEVEL 143.0 MMOL/L (136-145)
[2025-05-19 07:50] VITALS: BP 166/76; TEMP 96.7; O2SAT 96
[2025-05-19 12:31] VITALS: BP 129/75; TEMP 98.1; O2SAT 97
[2025-05-19 15:55] VITALS: BP 137/65; TEMP 97.4; O2SAT 95
[2025-05-19] MEDS: traMADol 50 MG TAB PO PRN (19:04)
[2025-05-19 19:19] VITALS: BP 165/81; TEMP 97.4; O2SAT 95
[2025-05-19 23:15] VITALS: BP 184/88; TEMP 97; O2SAT 96
[2025-05-19] MEDS: amLODIPine 5 MG TAB PO ONE (23:47)
[2025-05-20] MEDS: ACETAMINOPHEN *IV* 500 MG in IV 1 EA IV ONE (02:09)
[2025-05-20 03:17] VITALS: BP 161/78; TEMP 97.3; O2SAT 97
[2025-05-20 05:44] LABS: BASO # 0.1 10^3/uL (0.0-0.2); BASO % 1.2 % (0.0-1.0); EOS # 0.5 10^3/uL (0.0-0.5); EOS % 6.9 % (0.0-3.0); LYMPH # 1.6 10^3/uL (1.5-5.0); LYMPH % 23.4 % (24.0-44.0); MONO # 0.6 10^3/uL (0.0-0.8); MONO % 9.5 % (2.0-8.0); NEUTROPHILS # 3.9 10^3/uL (1.5-8.5); NEUTROPHILS % 58.5 % (36.0-66.0); PLATELET COUNT, AUTOMATED 252 10^3/uL (150-450)
[2025-05-20 06:17] LABS: CALCIUM LEVEL 8.8 MG/DL (8.3-10.6); CARBON DIOXIDE LEVEL 27 MMOL/L (20-31); CHLORIDE LEVEL 105 MMOL/L (98-107); CREATININE FOR GFR 0.66 MG/DL (0.55-1.30); GLOMERULAR FILTRATION RATE > 90.0 (>39); POTASSIUM SERUM 4.2 MMOL/L (3.5-5.1); SODIUM LEVEL 143 MMOL/L (136-145)
[2025-05-20 07:25] VITALS: BP 147/81; TEMP 97.4; O2SAT 97
[2025-05-20] MEDS: ENOXAPARIN 40 MG/0.4 ML SYRINGE (J1650 PER 10MG) SC SCH (08:39)
[2025-05-20] MEDS: KETOROLAC 30 MG/ML 1 ML VIAL IV SCH (09:28)
[2025-05-20 11:25] VITALS: BP 162/76; TEMP 98.3; O2SAT 97
[2025-05-20] MEDS: amLODIPine 5 MG TAB PO SCH (13:10)
[2025-05-20 15:49] VITALS: BP 127/70; TEMP 98.6; O2SAT 96
[2025-05-20 20:00] VITALS: BP 169/81; TEMP 98.2; O2SAT 98
[2025-05-20 23:32] VITALS: BP 148/84; TEMP 97.3; O2SAT 97
[2025-05-21] VITALS (7 sets, daily range): BP systolic 139–168; BP diastolic 63–90; TEMP 97.3–98.5; O2SAT 93–98
[2025-05-21 05:18] LABS: PLATELET COUNT, AUTOMATED 280 10^3/uL (150-450)
[2025-05-21 05:43] LABS: CALCIUM LEVEL 9.4 MG/DL (8.3-10.6); CARBON DIOXIDE LEVEL 27 MMOL/L (20-31); CHLORIDE LEVEL 105 MMOL/L (98-107); CREATININE FOR GFR 0.65 MG/DL (0.55-1.30); GLOMERULAR FILTRATION RATE > 90.0 (>39); POTASSIUM SERUM 4.5 MMOL/L (3.5-5.1); SODIUM LEVEL 143 MMOL/L (136-145)
[2025-05-21] MEDS: traMADol 50 MG TAB PO PRN (13:01)
[2025-05-22 00:09] VITALS: BP 135/63; TEMP 97.5; O2SAT 96
[2025-05-22 03:44] VITALS: BP 137/66; TEMP 97.2; O2SAT 96
[2025-05-22 05:57] LABS: PLATELET COUNT, AUTOMATED 301 10^3/uL (150-450)
[2025-05-22 06:27] LABS: CALCIUM LEVEL 9.2 MG/DL (8.3-10.6); CARBON DIOXIDE LEVEL 27.0 MMOL/L (20-31); CHLORIDE LEVEL 104.0 MMOL/L (98-107); CREATININE FOR GFR 0.72 MG/DL (0.55-1.30); GLOMERULAR FILTRATION RATE 87.1 (>39); POTASSIUM SERUM 4.5 MMOL/L (3.5-5.1); SODIUM LEVEL 142.0 MMOL/L (136-145)
[2025-05-22 07:59] VITALS: BP 131/66; TEMP 98.4; O2SAT 96
[2025-05-22 08:17] VITALS: BP 131/66
[2025-05-22] MEDS ORDERED: OXYC-517 PO (11:06)
[2025-05-22] MEDS ORDERED: ONDA-282 PO (11:06)
[2025-05-22] MEDS ORDERED: MIRA33506 PO (11:06)
[2025-05-22] MEDS ORDERED: IBUP-1114 PO (11:06)
[2025-05-22] MEDS ORDERED: DOCU8.6T PO (11:06)
[2025-05-22] MEDS ORDERED: TRAM50TA2 PO (11:06)
[2025-05-22] MEDS ORDERED: COLA100C5 PO (11:06)
== END 2025-05-22 13:30 | disposition home or self-care (01) | DRG 560 ==
LOC: M ED 04:22 → M ED INP 04:23 → M MS4PR 17:29 → M PCU 05-14 10:28 → OBSVTOIN 05-14 13:20
PROVIDERS: ADMIT Internal Medicine Nephrology; ATTEND Internal Medicine Nephrology
PROC: 3E0S3BZ Introduction of Anesthetic Agent into Epidural Space, Percutaneous Approach (ICD-10-PCS; principal; 2025-05-14 13:30)
DX: S22.41XD Multiple fractures of ribs, right side, subsequent encounter for fracture with routine healing (principal); J98.11 Atelectasis; J90 Pleural effusion, not elsewhere classified; T39.395A Adverse effect of other nonsteroidal anti-inflammatory drugs [NSAID], initial encounter; T40.605A Adverse effect of unspecified narcotics, initial encounter; R07.81 Pleurodynia; K40.20 Bilateral inguinal hernia, without obstruction or gangrene, not specified as recurrent; E78.5 Hyperlipidemia, unspecified; E04.1 Nontoxic single thyroid nodule; J45.909 Unspecified asthma, uncomplicated; I10 Essential (primary) hypertension; D64.9 Anemia, unspecified; R11.2 Nausea with vomiting, unspecified; K21.9 Gastro-esophageal reflux disease without esophagitis; H40.9 Unspecified glaucoma; Z90.79 Acquired absence of other genital organ(s); S27.0XXD Traumatic pneumothorax, subsequent encounter; Z79.899 Other long term (current) drug therapy; Z88.1 Allergy status to other antibiotic agents; Z88.2 Allergy status to sulfonamides; Z88.5 Allergy status to narcotic agent; Z88.6 Allergy status to analgesic agent